=== PATIENT | female | born 1990 | race Caucasian/White ===

== ENCOUNTER 2024-05-24 10:27 | Outpatient (AMB) | payer BC, SELFPAY ==
[2024-05-24 10:41] VITALS: BP 115/77; PULSE 73; RESP 18; TEMP 36.2; O2SAT 100; BMI 23.4
--- NOTE | 2024-05-24 10:48 | OBCLNT_ITS ---
Vital Signs 05/24/24 10:41 05/24/24 10:50 Height 1.6 m Height Method Measured Weight 60.016 kg Weight Measurement Method Standing Scale BMI 23.4 BP 115/77 115/77 Blood Pressure Source Manual Cuff- Auscultation Blood Pressure Location Left Upper Arm Position Sitting Respiration 18 18 Pulse 73 73 Pulse Source Monitor Temp 97.2 F 97.2 F Temp Source Oral Pulse Oximetry (%) 100 100 Oxygen Delivery Method Room Air Allergies/Home Meds Allergies & Medications Allergies No Known Allergies Allergy (Verified 05/24/24 10:48) Medication Reconciliation No Known Home Medications 05/24/24 [History] Intake Visit Data Collection New Patient or Established: New Patient (never been to [facility]) Reason for Visit:: OB INITIAL / ULTRASOUND Seen by Clinical Staff ONLY (RN/MA): No Solar Energy Specialist Required: No Do You Feel Safe at Home: Yes Authorities Contacted: N/A PCP or OBGYN visit in last 3 months: Yes Hx Now: Yes Are you currently on any form of Control: No Last menstrual period: 01/13/24 Smoking Status Smoking Status: Never smoker Questionnaires Covid-19 Vaccine Questionnaire Has patient been vacinated for Covid-19 Have you been vacinated for Covid-19: No PHQ-9 PHQ-2 Over the last 2 weeks, how often have you been bothered by any of the following problems? 1. Little interest or pleasure in doing things: not at all 2. Feeling down, depressed, or hopeless: not at all Total score: 0 Depression screen completed yes Social History Living Situation History Marital Status: Lives With: Family Housing: House Tobacco History Smoking Status: Never smoker Alcohol History Alcohol Intake: Never Substance Use History Substance Use: NO Domestic Abuse History Do You Feel Safe at Home: Yes Past Medical History Past Medical History Have you ever been diagnosed with any of the following: Neurological Problems Meningitis: No Seizures: No Platt's Palsy: No Migraine: No Cardiology Problems Cardiac Arrhythmia: No Heart Murmur: No Hypercholesterolemia: No Rheumatic Fever: No Deep Vein Thrombosis: No Respiratory Problems Asthma: No Pulmonary Embolism: No Sleep Apnea: No Stomache/Intestinal Problems Celiac Disease: No Gall Bladder Disease: No Irritable Bowel: No Gastroesophageal Reflux Disease: No Obesity: No Genital/Urinary Problems Renal Disease: No Kidney Stones: No Reproductive Problems Breast Cancer: No Endometriosis: No Genital Herpes: No Gonorrhea: No Pelvic Inflammatory Disease: No Polycystic Ovarian Syndrome: No Previous Pregnancies: No Syphilis: No Musculoskeletal Problems Arthritis: No Rheumatoid Arthritis: No Scoliosis: No Fibromyalgia: No Head,Eye,Nose,Throat Problems Glaucoma: No Endocrine Problems Diabetes Mellitus Type 2: No Hyperthyroidism: No Hypothyroidism: No Systemic Lupus Erythematosus: No Blood Problems Anemia: No Clotting Problems: No Psychologic Problems Depression: No Anxiety: No Other Problems Hospitalization: Yes (For childbirth) Autoimmune Disease: No Surgical History Appendectomy: No Bariatric Surgery: No Cholecystectomy: No History of Present Illness HPI Narrative Patient is a 34-year-old who presents for new OB visit OB Initial Visit Menstrual History Menstrual reliability: approximate (month known) Flow: normal Menstrual regularity: regular Monthly: Yes Age at menarche: 14 On control pills at conception: No Infection History & Risk Evaluation History of STDs: none HIV risk evaluation: low risk Hepatitis B risk evaluation: low risk Patient or partner has history of Genital Herpes: No Genetic Screening & History Genetic Screening/Teratology Counseling - Includes patient, baby's father, or anyone in either family with: 1. Patient's age 35 years or older as of estimated date of delivery: No Infection History Other (see comments) Source: [employer] Review of Systems Constitutional Constitutional: Reports system reviewed and no additional complaints, except as documented Comments: Patient reports fatigue and nausea. Some vomiting but not everyday. She denies vaginal bleeding. Exam General Limitations: no limitations General Appearance: alert, in no apparent distress, comfortable, cooperative, healthy appearing, well developed and well groomed Head Head exam: atraumatic, normocephalic and normal inspection Neck Neck exam: Present normal inspection, full ROM and trachea midline Chest Chest inspection: Present normal inspection and symmetric chest wall rise Resp Respiratory exam: Present normal lung sounds bilaterally Card Cardiovascular exam: Present regular rate, normal rhythm and normal heart sounds Abdominal Abdominal exam: Present soft and normal bowel sounds Extremities Extremities exam: Present normal inspection and full ROM Psych Psychiatric exam: Present normal affect and normal mood Skin Skin exam: Present warm, dry, intact and normal color Assessment & Plan Diagnosis / Problem List (1) : Status: Acute Qualifiers: Weeks of gestation: 9 weeks Qualified Code(s): Z3A.09 - 9 weeks gestation of Plan: Intrauterine . Check labs check ultrasound discussed NIPT Additional Plan Follow Up: 4 Weeks Office Procedures OB Clinic LOC & Office Proc's Nursing/Assessment Patient Status: Initial/New Patient OB Clinic Nursing Assessment: BP Monitoring, Medication Reconciliation, Update PMH in EMR and Vital Signs OB Clinic Coordination of Care: Education Simp Pt/Fam, Lab and Imaging orders and Staff clarify orders New Patient Charge New Patient Point Assignment: 1084 Established Patient Charge Established Patient Point Charge: EP Level 5 (160-above)
[2024-05-24 10:50] VITALS: BP 115/77; PULSE 73; RESP 18; TEMP 36.2; O2SAT 100
== END 2024-05-24 12:10 | disposition home or self-care (01) ==
LOC: HODSOBC 10:27
PROVIDERS: PCP Nurse Practitioner Family; Supervising Provider Obstetrics & Gynecology; Visit Provider Obstetrics & Gynecology
DX: Z34.91 Encounter for supervision of normal pregnancy, unspecified, first trimester (principal); Z3A.09 9 weeks gestation of pregnancy
CPT/HCPCS: 99215; G0463

== ENCOUNTER 2024-06-29 13:31 | Outpatient (AMB) | payer BC, SELFPAY ==
[2024-06-29 13:45] VITALS: BP 99/61; PULSE 65; RESP 12; TEMP 36.1; O2SAT 98; BMI 24.6
--- NOTE | 2024-06-29 13:45 | AMB.OBVISIT ---
Vital Signs 06/29/24 13:45 Height 1.6 m Height Method Stated Weight 63.049 kg Weight Measurement Method Standing Scale BMI 24.6 BP 99/61 Blood Pressure Source Automatic Cuff Blood Pressure Location Left Upper Arm Position Sitting Respiration 12 Pulse 65 Pulse Source Monitor Temp 96.9 F Temp Source Oral Pulse Oximetry (%) 98 Oxygen Delivery Method Room Air Allergies/Home Meds Allergies & Medications Allergies No Known Allergies Allergy (Verified 06/29/24 13:47) Medication Reconciliation No Known Home Medications 05/24/24 [History Confirmed 06/29/24] Intake Visit Data Collection New Patient or Established: Established Patient (seen at [facility] within 3 years) Reason for Visit:: care Seen by Clinical Staff ONLY (RN/MA): No Honeycomb Blanket Maker Required: No Do You Feel Safe at Home: Yes Authorities Contacted: N/A PCP or OBGYN visit in last 3 months: Yes Date of Last PCP or OBGYN visit: 05/24/24 Hx Now: Yes Are you currently on any form of Control: No Last menstrual period: 02/05/24 Pain Present Currently: No Pain Scale Used: Thurston-Montes/Numerical Pain scale:: 0 Smoking Status Smoking Status: Never smoker Questionnaires Covid-19 Vaccine Questionnaire Has patient been vacinated for Covid-19 Have you been vacinated for Covid-19: No PHQ-9 PHQ-2 Over the last 2 weeks, how often have you been bothered by any of the following problems? 1. Little interest or pleasure in doing things: not at all 2. Feeling down, depressed, or hopeless: not at all Total score: 0 PHQ-9 3. Trouble falling or staying asleep, or sleeping too much: Not at all 4. Feeling tired or having little energy: Not at all 5. Poor appetite or overeating: Not at all 6. Feeling bad about yourself - or that you are a failure or have let yourself or your family down: Not at all 7. Trouble concentrating on things, such as reading the newspaper or watching television: Not at all 8. Moving or speaking so slowly that other people could have noticed? - Or the opposite - being so fidgety or restless that you have been moving around a lot more than usual: not at all 9. Thoughts that you would be better off or of hurting yourself in some way: Not at all Total score: 0 Source: Developed by Drs. Brigido Mayfield, Rosenda Patterson, Patircio Mcguire and colleagues, with an educational anastasiya from [employer]. Depression screen completed yes Social History Living Situation History Marital Status: Lives With: Family Housing: House Housing Other:: Patient has a 4-year-old daughter and a 13-year-old stepson at home. 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 Feel Safe at Home: Yes Past Medical History Past Medical History Have you ever been diagnosed with any of the following: Neurological Problems Cerebrovascular Accident (CVA): No Transient Ischemic Attacks (TIA): No Dementia: No Alzheimer's Disease: No Parkinson's Disease: No Brain Tumor: No Meningitis: No Seizures: No Platt's Palsy: No Migraine: No Cardiology Problems Cardiac Arrhythmia: No Heart Murmur: No Hypercholesterolemia: No Rheumatic Fever: No Deep Vein Thrombosis: No Hypertension: No Respiratory Problems Chronic Obstructive Pulmonary Disease (COPD): No Asthma: No Pulmonary Embolism: No Sleep Apnea: No Hx Cough: No Cough: No Wheezing: No Smoking: No Smoking Exposure: No Tobacco Use: No Stomache/Intestinal Problems Liver Cancer: No Hepatitis: No Cirrhosis: No Pancreatic Cancer: No Pancreatitis: No Celiac Disease: No Gall Bladder Disease: No Irritable Bowel: No Gastroesophageal Reflux Disease: No Obesity: No Genital/Urinary Problems Chronic Kidney Disease: No Renal Disease: No Kidney Stones: No Reproductive Problems Breast Cancer: No Endometriosis: No Genital Herpes: No Gonorrhea: No Pelvic Inflammatory Disease: No Polycystic Ovarian Syndrome: No Previous Pregnancies: Yes Syphilis: No Musculoskeletal Problems Arthritis: No Rheumatoid Arthritis: No Scoliosis: No Fibromyalgia: No Head,Eye,Nose,Throat Problems Glaucoma: No Endocrine Problems Diabetes Mellitus Type 2: No Hyperthyroidism: No Hypothyroidism: No Systemic Lupus Erythematosus: No Blood Problems Anemia: No Clotting Problems: No Psychologic Problems Depression: No Anxiety: No Other Problems Hospitalization: Yes (For childbirth) Surgical History Appendectomy: No Bariatric Surgery: No Cholecystectomy: No History of Present Illness HPI Narrative Patient is a 34-year-old -0-0-1 history of vaginal delivery x 1 of a 6 pound 11 ounce daughter named Aniyah on 12/29/2019. 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 She had her lab work done and declined NIPT. I do not have results at the time of the visit. Today she denies heavy bleeding cramps she is reporting movement her EDC is end of October making her approximately 21 weeks . Patient needs a 20-week ultrasound and this was ordered. Review of Systems Review of Systems Narrative Review of Systems: She reports good movement no heavy bleeding cramping or contractions. Visit RYAN Calculator Estimated Delivery Date Method Current WG Current Estimate 10/19/24 LMP (Uncertain) 24w 0d Expected Delivery Route/Plan Anticipate . Patient will desire epidural. Initial Weight: Not Recorded Date <del>?</del> EGA Weight Edema CTX Effacement BP Fundal ht Pres Dilation Effacement Station Visit Note Alb Glu FHR Mov 06/29/24 <del>?</del> 24w 0d 63.049 kg 99/61 23 137 active Exam Narrative Physical exam: Fundus firm nontender Assessment & Plan Diagnosis / Problem List (1) : Status: Acute Qualifiers: Weeks of gestation: 21 weeks Qualified Code(s): Z3A.21 - 21 weeks gestation of Plan: Review labs. Patient declines NIPT. Second trimester structural survey ordered. Patient and do not desire to know the gender. GCT ordered for patient to get drawn in [place] [facility]. Additional Plan Follow Up: 4 Weeks Office Procedures OB Clinic LOC & Office Proc's Nursing/Assessment Patient Status: Established Patient OB Clinic Nursing Assessment: Medication Reconciliation, Update PMH in EMR and Vital Signs OB Clinic Coordination of Care: Complex Care and Chronic Disease 1-5, Consent,records obtained, informed consent, Education Simp Pt/Fam, Results/Orders obtained and Staff clarify orders Special Needs: Heart tones Established Patient Charge Established Patient Point Assignment: 120 Established Patient Point Charge: EP Level 4 (120-155)
== END 2024-06-29 14:45 | disposition home or self-care (01) ==
LOC: HODSOBC 13:31
PROVIDERS: PCP Nurse Practitioner Family; Referring Provider Nurse Practitioner Family; Supervising Provider Obstetrics & Gynecology; Visit Provider Obstetrics & Gynecology
DX: Z34.82 Encounter for supervision of other normal pregnancy, second trimester (principal); Z3A.21 21 weeks gestation of pregnancy
CPT/HCPCS: 99214; G0463

== ENCOUNTER 2024-08-02 11:08 | Outpatient (AMB) | payer BC, SELFPAY ==
[2024-08-02 11:45] VITALS: BP 98/63; PULSE 63; RESP 18; TEMP 36.2; O2SAT 99; BMI 24.8
--- NOTE | 2024-08-02 11:45 | OBCLNT_ITS ---
Vital Signs 08/02/24 11:45 Height 1.6 m Height Method Stated Weight 63.673 kg Weight Measurement Method Standing Scale BMI 24.8 BP 98/63 Blood Pressure Source Automatic Cuff Blood Pressure Location Left Upper Arm Position Sitting Respiration 18 Pulse 63 Pulse Source Monitor Temp 97.2 F Temp Source Oral Pulse Oximetry (%) 99 Oxygen Delivery Method Room Air Allergies/Home Meds Allergies & Medications Allergies No Known Allergies Allergy (Verified 08/02/24 11:47) Medication Reconciliation No Known Home Medications 05/24/24 [History Confirmed 08/02/24] Intake Visit Data Collection New Patient or Established: Established Patient (seen at [facility] within 3 years) Reason for Visit:: visit Seen by Clinical Staff ONLY (RN/MA): No Physician Allergist Immunologist Required: No Do You Feel Safe at Home: Yes Authorities Contacted: N/A PCP or OBGYN visit in last 3 months: Yes Date of Last PCP or OBGYN visit: 06/29/24 Hx Now: Yes Are you currently on any form of Control: No Pain Present Currently: No Pain Scale Used: Thurston-Montes/Numerical Pain scale:: 0 Smoking Status Smoking Status: Never smoker Questionnaires Covid-19 Vaccine Questionnaire Has patient been vacinated for Covid-19 Have you been vacinated for Covid-19: No PHQ-9 PHQ-2 Over the last 2 weeks, how often have you been bothered by any of the following problems? 1. Little interest or pleasure in doing things: not at all 2. Feeling down, depressed, or hopeless: not at all Total score: 0 PHQ-9 3. Trouble falling or staying asleep, or sleeping too much: Not at all 4. Feeling tired or having little energy: Not at all 5. Poor appetite or overeating: Not at all 6. Feeling bad about yourself - or that you are a failure or have let yourself or your family down: Not at all 7. Trouble concentrating on things, such as reading the newspaper or watching television: Not at all 8. Moving or speaking so slowly that other people could have noticed? - Or the opposite - being so fidgety or restless that you have been moving around a lot more than usual: not at all 9. Thoughts that you would be better off or of hurting yourself in some way: Not at all Total score: 0 If you checked off any problems, how difficult have these problems made it for you to do your work, take care of things at home, or get along with other people?: not difficult at all Source: Developed by Drs. Brigdio Mayfield, Rosenda Patterson, Patricio Mcguire and colleagues, with an educational anastasiya from [employer]. Depression screen completed yes Social History Living Situation History Lives With: Family Housing: House Housing Other:: Patient has a 4-year-old daughter and a 13-year-old stepson at home. 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 Feel Safe at Home: Yes Past Medical History Past Medical History Have you ever been diagnosed with any of the following: Neurological Problems Cerebrovascular Accident (CVA): No Transient Ischemic Attacks (TIA): No Dementia: No Alzheimer's Disease: No Parkinson's Disease: No Brain Tumor: No Meningitis: No Seizures: No Platt's Palsy: No Migraine: No Cardiology Problems Cardiac Arrhythmia: No Heart Murmur: No Hypercholesterolemia: No Rheumatic Fever: No Deep Vein Thrombosis: No Hypertension: No Respiratory Problems Chronic Obstructive Pulmonary Disease (COPD): No Asthma: No Pulmonary Embolism: No Sleep Apnea: No Hx Cough: No Cough: No Wheezing: No Smoking: No Smoking Exposure: No Tobacco Use: No Stomache/Intestinal Problems Liver Cancer: No Hepatitis: No Cirrhosis: No Pancreatic Cancer: No Pancreatitis: No Celiac Disease: No Gall Bladder Disease: No Irritable Bowel: No Gastroesophageal Reflux Disease: No Obesity: No Genital/Urinary Problems Renal Disease: No Kidney Stones: No Reproductive Problems Breast Cancer: No Endometriosis: No Genital Herpes: No Gonorrhea: No Pelvic Inflammatory Disease: No Polycystic Ovarian Syndrome: No Previous Pregnancies: Yes Syphilis: No Musculoskeletal Problems Arthritis: No Rheumatoid Arthritis: No Scoliosis: No Fibromyalgia: No Head,Eye,Nose,Throat Problems Glaucoma: No Endocrine Problems Diabetes Mellitus Type 2: No Hyperthyroidism: No Hypothyroidism: No Systemic Lupus Erythematosus: No Blood Problems Anemia: No Clotting Problems: No Psychologic Problems Depression: No Anxiety: No Other Problems Hospitalization: Yes (For childbirth) Surgical History Appendectomy: No Bariatric Surgery: No Cholecystectomy: No Visit OB Visit Log OB Flowsheet Initial Weight: Not Recorded Date -?-?-?-?-?-?-?-?-?-?-?-?- EGA Weight Edema CTX Effacement BP Fundal ht Pres Dilation Effacement Station Visit Note Alb Glu FHR Mov 06/29/24 -?-?-?-?-?-?-?-?-?-?-?-?- 24w 0d 63.049 kg 99/61 23 137 active 08/02/24 -?-?-?-?-?-?-?-?-?-?-?-?- 28w 6d 63.673 kg 98/63 [address] [place]. No report available. Will get Labs/US report 145 active RYAN Calculator Estimated Delivery Date Method Current WG Current Estimate 10/19/24 LMP (Uncertain) 29w 0d Expected Delivery Route/Plan Anticipate . Patient will desire epidural. Office Procedures OB Clinic LOC & Office Proc's Nursing/Assessment Patient Status: Established Patient OB Clinic Nursing Assessment: BP Monitoring, Medication Reconciliation, Update PMH in EMR and Vital Signs OB Clinic Coordination of Care: Consent,records obtained, informed consent, Education Simp Pt/Fam and Staff clarify orders Special Needs: Heart tones Established Patient Charge Established Patient Point Assignment: 105 Established Patient Point Charge: EP Level 3 (80-115)
== END 2024-08-02 12:03 | disposition home or self-care (01) ==
LOC: HODSOBC 11:08
PROVIDERS: PCP Nurse Practitioner Family; Referring Provider Nurse Practitioner Family; Supervising Provider Obstetrics & Gynecology; Visit Provider Obstetrics & Gynecology
DX: Z34.83 Encounter for supervision of other normal pregnancy, third trimester (principal); Z3A.28 28 weeks gestation of pregnancy
CPT/HCPCS: 99213; G0463

== ENCOUNTER 2024-08-30 10:39 | Outpatient (AMB) | payer BC, SELFPAY ==
[2024-08-30 10:51] VITALS: BP 115/70; PULSE 76; RESP 15; TEMP 36.1; O2SAT 98; BMI 26.2
--- NOTE | 2024-08-30 10:51 | OBCLNT_ITS ---
Vital Signs 08/30/24 10:51 Height 1.6 m Height Method Stated Weight 67.302 kg Weight Measurement Method Standing Scale BMI 26.2 BP 115/70 Blood Pressure Source Automatic Cuff Blood Pressure Location Right Upper Arm Position Sitting Respiration 15 Pulse 76 Pulse Source Monitor Temp 96.9 F Temp Source Oral Pulse Oximetry (%) 98 Oxygen Delivery Method Room Air Allergies/Home Meds Allergies & Medications Allergies No Known Allergies Allergy (Verified 08/30/24 10:52) Medication Reconciliation No Known Home Medications 05/24/24 [History Confirmed 08/30/24] Intake Visit Data Collection New Patient or Established: Established Patient (seen at [facility] within 3 years) Reason for Visit:: CARE Seen by Clinical Staff ONLY (RN/MA): No Customer Success Associate Required: No Do You Feel Safe at Home: Yes Authorities Contacted: N/A PCP or OBGYN visit in last 3 months: Yes Hx Now: No Are you currently on any form of Control: No Pain Present Currently: No Pain Scale Used: Thurston-Montes/Numerical Pain scale:: 0 Smoking Status Smoking Status: Never smoker Questionnaires Covid-19 Vaccine Questionnaire Has patient been vacinated for Covid-19 Have you been vacinated for Covid-19: Yes PHQ-9 PHQ-2 Over the last 2 weeks, how often have you been bothered by any of the following problems? 1. Little interest or pleasure in doing things: not at all 2. Feeling down, depressed, or hopeless: not at all Total score: 0 PHQ-9 3. Trouble falling or staying asleep, or sleeping too much: Not at all 4. Feeling tired or having little energy: Not at all 5. Poor appetite or overeating: Not at all 6. Feeling bad about yourself - or that you are a failure or have let yourself or your family down: Not at all 7. Trouble concentrating on things, such as reading the newspaper or watching television: Not at all 8. Moving or speaking so slowly that other people could have noticed? - Or the opposite - being so fidgety or restless that you have been moving around a lot more than usual: not at all 9. Thoughts that you would be better off or of hurting yourself in some way: Not at all Total score: 0 Source: Developed by Rosenda AlmonteW. Leonardo, Patricio Mcguire and colleagues, with an educational anastasiya from [employer]. Depression screen completed yes Social History Living Situation History Lives With: Family Housing: House Housing Other:: Patient has a 4-year-old daughter and a 13-year-old stepson at home. 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: Past Medical History Past Medical History: No Hx Hypothyroidism, No Hx Hyperthyroidism, No Hx Breast Cancer, No Hx Hypertension, No Hx Anemia, No Hx Renal Disease, No Hx Deep Vein Thrombosis, No Hx Diabetes Mellitus Type 2 and No Hx Polycystic Ovarian Syndrome Care OB Visit Log OB Flowsheet Initial Weight: Not Recorded Date -?-?-?-?-?-?-?-?-?-?-?-?- EGA Weight Edema CTX Effacement BP Fundal ht Pres Dilation Effacement Station Visit Note Alb Glu FHR Mov 06/29/24 -?-?-?-?-?-?-?-?-?-?-?-?- 24w 0d 63.049 kg 99/61 23 137 active 08/02/24 -?-?-?-?-?-?-?-?-?-?-?-?- 28w 6d 63.673 kg 98/63 29 [place] [address] [place]. No report available. Will get Labs/US report 145 active 08/30/24 -?-?-?-?-?-?-?-?-?-?-?-?- 32w 6d 67.302 kg 115/70 33 P haim FM no UC's no VB need all labs and ultrasound from [facility]. active RYAN Calculator Estimated Delivery Date Method Current WG Current Estimate 10/19/24 LMP (Uncertain) 32w 6d Expected Delivery Route/Plan Anticipate . Patient will desire epidural. Has a 4-year-old daughter Aniyah. A 12-year-old stepson. Notes Visit Date: 08/30/24 Last Updated by: Catherine Beasley (OB Clinic)MD No care labs are reviewed yet. No structural survey available yet. [facility] She had her glucose challenge test all done at [facility]. Office Procedures OB Clinic LOC & Office Proc's Nursing/Assessment Patient Status: Established Patient OB Clinic Nursing Assessment: Medication Reconciliation, Update PMH in EMR and Vital Signs OB Clinic Coordination of Care: Complex Care and Chronic Disease 1-5, Consent,records obtained, informed consent, Education Simp Pt/Fam, Lab and Imaging orders and Staff clarify orders Special Needs: Heart tones Established Patient Charge Established Patient Point Assignment: 130 Established Patient Point Charge: EP Level 4 (120-155)
== END 2024-08-30 11:29 | disposition home or self-care (01) ==
PROVIDERS: Supervising Provider Obstetrics & Gynecology; Visit Provider Obstetrics & Gynecology
DX: Z34.83 Encounter for supervision of other normal pregnancy, third trimester (principal); Z3A.32 32 weeks gestation of pregnancy
CPT/HCPCS: 99214; G0463

== ENCOUNTER 2024-09-27 08:27 | Outpatient (AMB) | payer BC, SELFPAY ==
[2024-09-27 08:44] VITALS: BP 123/83; PULSE 75; RESP 18; TEMP 36.2; O2SAT 98; BMI 27.6
--- NOTE | 2024-09-27 08:44 | OBCLNT_ITS ---
Vital Signs 09/27/24 08:44 Height 1.6 m Height Method Stated Weight 70.817 kg Weight Measurement Method Standing Scale BMI 27.6 BP 123/83 Blood Pressure Source Automatic Cuff Blood Pressure Location Left Upper Arm Position Sitting Respiration 18 Pulse 75 Pulse Source Monitor Temp 97.2 F Temp Source Oral Pulse Oximetry (%) 98 Oxygen Delivery Method Room Air Allergies/Home Meds Allergies & Medications Allergies No Known Allergies Allergy (Verified 09/27/24 08:45) Medication Reconciliation No Known Home Medications 05/24/24 [History Confirmed 09/27/24] Intake Visit Data Collection New Patient or Established: Established Patient (seen at [facility] within 3 years) Reason for Visit:: OBC Seen by Clinical Staff ONLY (RN/MA): No Director Of First Impressions Required: No Do You Feel Safe at Home: Yes Authorities Contacted: N/A PCP or OBGYN visit in last 3 months: Yes Date of Last PCP or OBGYN visit: 08/30/24 Hx Now: Yes Are you currently on any form of Control: No Pain Present Currently: No Pain Scale Used: Thurston-Montes/Numerical Pain scale:: 0 Smoking Status Smoking Status: Never smoker Questionnaires Covid-19 Vaccine Questionnaire Has patient been vacinated for Covid-19 Have you been vacinated for Covid-19: No PHQ-9 PHQ-2 Over the last 2 weeks, how often have you been bothered by any of the following problems? 1. Little interest or pleasure in doing things: not at all 2. Feeling down, depressed, or hopeless: not at all Total score: 0 PHQ-9 3. Trouble falling or staying asleep, or sleeping too much: Not at all 4. Feeling tired or having little energy: Not at all 5. Poor appetite or overeating: Not at all 6. Feeling bad about yourself - or that you are a failure or have let yourself or your family down: Not at all 7. Trouble concentrating on things, such as reading the newspaper or watching television: Not at all 8. Moving or speaking so slowly that other people could have noticed? - Or the opposite - being so fidgety or restless that you have been moving around a lot more than usual: not at all 9. Thoughts that you would be better off or of hurting yourself in some way: Not at all Total score: 0 If you checked off any problems, how difficult have these problems made it for you to do your work, take care of things at home, or get along with other people?: not difficult at all Source: Developed by Drs. Brigido Mayfield, Rosenda Patterson, Patricio Mcguire and colleagues, with an educational anastasiya from [employer]. Depression screen completed yes Social History Living Situation History Marital Status: Lives With: Family Housing: House Housing Other:: Patient has a 4-year-old daughter and a 13-year-old stepson at home. 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 She presents for care. Her daughter Aniyah was born 4 years ago. She had an epidural. She pushed a long time but otherwise had no complications. Care OB Visit Log OB Flowsheet Initial Weight: Not Recorded Date -?-?-?-?-?-?-?-?-?-?-?-?- EGA Weight BP Alb Glu CTX Pres Fundal ht FHR Mov Dilation Station Effacement Hx Notes Visit Note 06/29/24 -?-?-?-?-?-?-?-?-?-?-?-?- 24w 0d 63.049 kg 99/61 23 137 active 08/02/24 -?-?-?-?-?-?-?-?-?-?-?-?- 28w 6d 63.673 kg 98/63 29 145 active Had US. No report available. Will get Labs/US report 08/30/24 -?-?-?-?-?-?-?-?-?-?-?-?- 32w 6d 67.302 kg 115/70 33 active Plus FM no UC's no VB need all labs and ultrasound from [facility]. 09/27/24 -?-?-?-?-?-?-?-?-?-?-?-?- 36w 6d 70.817 kg 123/83 37 147 active Positive movement no contractions no loss of fluids no vaginal bleeding RYAN Calculator Estimated Delivery Date Method Current WG Current Estimate 10/19/24 LMP (Uncertain) 37w 0d Comments: LMP 02/05/2024 Expected Delivery Route/Plan Anticipate . Patient will desire epidural. Has a 4-year-old daughter Aniyah. A 12-year-old mariza. Specific Issue/Plans Had all the lab work done at [facility] in [place]. Notes Visit Date: 09/27/24 Last Updated by: Catherine Beasley (OB Clinic)MD No care records from [facility] or labs or imaging available on the computer. Group B strep done today. Cervix is closed baby is vertex on ultrasound. Order ultrasound for size and dates. Visit Date: 08/30/24 Last Updated by: Catherine Beasley (OB Clinic)MD No care labs are reviewed yet. No structural survey available yet. All were done at [facility]. She had her glucose challenge test all done at [facility]. Office Procedures OB Clinic LOC & Office Proc's Nursing/Assessment Patient Status: Established Patient OB Clinic Nursing Assessment: Medication Reconciliation, Update PMH in EMR and Vital Signs OB Clinic Coordination of Care: Education Complex Pt/Fam, Consent,records obtained, informed consent, Lab and Imaging orders and Staff clarify orders Special Needs: Heart tones Established Patient Charge Established Patient Point Assignment: 110 Established Patient Point Charge: EP Level 3 (80-115)
== END 2024-09-27 09:28 | disposition home or self-care (01) ==
LOC: HODSOBC 08:27
PROVIDERS: Supervising Provider Obstetrics & Gynecology; Visit Provider Obstetrics & Gynecology
DX: Z34.83 Encounter for supervision of other normal pregnancy, third trimester (principal); Z3A.36 36 weeks gestation of pregnancy; Z36.85 Encounter for antenatal screening for Streptococcus B
CPT/HCPCS: 99213; G0463

== ENCOUNTER 2024-10-08 11:29 | Outpatient (AMB) | payer BC, SELFPAY ==
[2024-10-08 11:48] VITALS: BP 130/86; PULSE 63; RESP 17; TEMP 36.3; O2SAT 99; BMI 27.6
--- NOTE | 2024-10-08 11:48 | OBCLNT_ITS ---
Vital Signs 10/08/24 11:48 Height 1.6 m Height Method Measured Weight 70.76 kg Weight Measurement Method Standing Scale BMI 27.6 BP 130/86 H Blood Pressure Source Automatic Cuff Blood Pressure Location Right Upper Arm Position Sitting Respiration 17 Pulse 63 Pulse Source Monitor Temp 97.3 F Temp Source Temporal Artery Scan Pulse Oximetry (%) 99 Oxygen Delivery Method Room Air Allergies/Home Meds Allergies & Medications Allergies No Known Allergies Allergy (Verified 10/08/24 11:49) Medication Reconciliation No Known Home Medications 05/24/24 [History Confirmed 10/08/24] Intake Visit Data Collection New Patient or Established: Established Patient (seen at [facility] within 3 years) Reason for Visit:: OBC WEEKLY Seen by Clinical Staff ONLY (RN/MA): No 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 1. Little interest or pleasure in doing things: not at all 2. Feeling down, depressed, or hopeless: not at all Total score: 0 PHQ-9 3. Trouble falling or staying asleep, or sleeping too much: Not at all 4. Feeling tired or having little energy: Not at all 5. Poor appetite or overeating: Not at all 6. Feeling bad about yourself - or that you are a failure or have let yourself or your family down: Not at all 7. Trouble concentrating on things, such as reading the newspaper or watching television: Not at all 8. Moving or speaking so slowly that other people could have noticed? - Or the opposite - being so fidgety or restless that you have been moving around a lot more than usual: not at all 9. Thoughts that you would be better off or of hurting yourself in some way: Not at all Total score: 0 If you checked off any problems, how difficult have these problems made it for you to do your work, take care of things at home, or get along with other people?: not difficult at all Source: Developed by Drs. Brigido Mayfield, Rosenda Patterson, Patricio Mcguire and colleagues, with an educational anastasiya from [employer]. Depression screen completed yes Social History Living Situation History Lives With: Family Housing: House Housing Other:: Patient has a 4-year-old daughter and a 13-year-old stepson at home. 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 No contractions, LOF, VB and reports good FM. Denies BOUCHER, VC, and epigastric pain. - Khoa Hurst is a 34-year-old at ~37 weeks gestation presenting for routine care. - Patient reports no specific complaints or concerns. - Chart indicates October 21, 2024 - Recent ultrasound suggests November 11, 2024 - Previous ultrasound indicated November 08, 2024 - Obstetrical history: - One previous - Daughter born 1 week early - Spontaneous rupture of membranes at home - Labor lasted approximately 24 hours - Patient expresses hope for faster labor with current . - Currently working, plans to work until October 29, 2024. - Denies knowledge of gender, preferring it to be a surprise. Care OB Visit Log OB Flowsheet Initial Weight: Not Recorded Date -?-?-?-?-?-?-?-?-?-?-?-?- EGA Weight BP Alb Glu CTX Pres Fundal ht FHR Mov Dilation Station Effacement Hx Notes Visit Note 06/29/24 -?-?-?-?-?-?-?-?-?-?-?-?- 20w 6d 63.049 kg 99/61 23 137 active 08/02/24 -?-?-?-?-?-?-?-?-?-?-?-?- 25w 5d 63.673 kg 98/63 29 145 active Had US. No report available. Will get Labs/US report 08/30/24 -?-?-?-?-?-?-?-?-?-?-?-?- 29w 5d 67.302 kg 115/70 33 active Plus FM no UC's no VB need all labs and ultrasound from [facility]. 09/27/24 -?-?-?-?-?-?-?-?-?-?-?-?- 33w 5d 70.817 kg 123/83 37 147 active Positive movement no contractions no loss of fluids no vaginal bleeding 10/08/24 -?-?-?-?-?-?-?-?-?-?-?-?- 35w 2d 70.76 kg 130/86 absent unknown 37 145 active Denies CTX, LOF, VB; reports good FM. PENDING ultrasound reports from [facility] to finalize RYAN. call patient thi s afternoon with updated RYAN after reviewing US reports, 1- week f/u with Dr. Mckeon, discuss risk reduction salpingectomy vs tubal ligation options. RYAN Calculator Estimated Delivery Date Method Current WG Current Estimate 11/10/24 Ultrasound #1 35w 2d Other Estimates 10/19/24 LMP (Uncertain) 38w 3d Expected Delivery Route/Plan Anticipate . Patient will desire epidural. Has a 4-year-old daughter Aniyah. A 12-year-old stepson. Specific Issue/Plans Had all the lab work done at [facility] in [place]. Notes Visit Date: 09/27/24 Last Updated by: Catherine Beasley (OB Clinic)MD No care records from [facility] or labs or imaging available on the computer. Group B strep done today. Cervix is closed baby is vertex on ultrasound. Order ultrasound for size and dates. Visit Date: 08/30/24 Last Updated by: Catherine Beasley (OB Clinic)MD No care labs are reviewed yet. No structural survey available yet. All were done at today's. She had her glucose challenge test all done at [facility]. Exam General General Appearance: alert, in no apparent distress and healthy appearing Head Head exam: atraumatic Neck Neck exam: Present normal inspection and trachea midline Chest Chest inspection: Present normal inspection and symmetric chest wall rise External exam: Present normal external exam; Absent tenderness Neuro Neurological exam: Present oriented X3 Psych Psychiatric exam: Present normal affect and normal mood Office Procedures OB Clinic LOC & Office Proc's Nursing/Assessment Patient Status: Established Patient OB Clinic Nursing Assessment: Medication Reconciliation, Update PMH in EMR and Vital Signs OB Clinic Coordination of Care: Consent,records obtained, informed consent, 4+ Authorizations needed and Staff clarify orders Special Needs: Heart tones Established Patient Charge Established Patient Point Assignment: 100 Established Patient Point Charge: EP Level 3 (80-115) Assessment & Plan Diagnosis / Problem List (1) with 37 weeks completed gestation: Status: Acute (2) AMA (advanced maternal age) multigravida 35+: Status: Acute Plan Problem List - , ~37 weeks gestation (pending ultrasounds from [facility]) - Group B streptococcus screening completed Assessment at ~37 weeks gestation with estimated due date (RYAN) of October 19, 2024, based on early ultrasound dating. Patient reports conflicting due dates from recent ultrasounds, with later estimates ranging from November 08 to November 11. Group B strep culture has been completed. heart rate auscultated at 135 bpm, within normal limits. Patient's first resulted in spontaneous rupture of membranes at home with a prolonged labor of approximately 24 hours. Patient is considering sterilization options, with preference for interval laparoscopic tubal ligation. Plan - Call patient in the afternoon with updated information on due date after reviewing ultrasound reports - Schedule 1-week follow-up appointment with Dr. Mckeon - Provide patient with information on risk reduction related to sterilization options - Discuss sterilization options: * tubal ligation * Laparoscopic tubal ligation at 6 weeks (preferred due to fewer complications and higher efficacy) - Print information on ovarian cancer risk reduction associated with fimbriectomy during tubal ligation Addendum Records were obtained from [facility] and final results are as follows Estimated Due Date Summary Date RYAN LMP 01/13/2024 RYAN by LMP 10/19/2024 Ultrasound #1 08/02/2024 GA at US 25w5d RYAN by US #1: 11/10/2024 Final RYAN 11/10/2024 Basis for Final RYAN US (>14d discrepancy in 2nd trimester)
== END 2024-10-08 12:12 | disposition home or self-care (01) ==
PROVIDERS: Supervising Provider Obstetrics & Gynecology; Visit Provider Obstetrics & Gynecology
DX: Z34.83 Encounter for supervision of other normal pregnancy, third trimester (principal); Z3A.37 37 weeks gestation of pregnancy
CPT/HCPCS: 99213; G0463

== ENCOUNTER 2024-10-18 08:58 | Outpatient (AMB) | payer BC, SELFPAY ==
--- NOTE | 2024-10-18 09:18 | OBCLNT_ITS ---
Vital Signs 10/18/24 09:19 Height 1.6 m Height Method Measured Weight 73.085 kg Weight Measurement Method Standing Scale BMI 28.5 BP 143/94 H Blood Pressure Source Automatic Cuff Blood Pressure Location Right Upper Arm Position Sitting Respiration 17 Pulse 75 Pulse Source Monitor Temp 97.5 F Temp Source Temporal Artery Scan Pulse Oximetry (%) 98 Oxygen Delivery Method Room Air Allergies/Home Meds Allergies & Medications Allergies No Known Allergies Allergy (Verified 10/18/24 09:20) Medication Reconciliation No Known Home Medications 05/24/24 [History Confirmed 10/18/24] Intake Visit Data Collection New Patient or Established: Established Patient (seen at [facility] within 3 years) Reason for Visit:: OBC Consent obtained for Telemed Visit: No Seen by Clinical Staff ONLY (RN/MA): No Enrollment Eligibility Representative Required: No Do You Feel Safe at Home: Yes Authorities Contacted: N/A PCP or OBGYN visit in last 3 months: Yes Date of Last PCP or OBGYN visit: 10/08/24 Hx Now: Yes Are you currently on any form of Control: No Pain Present Currently: No Pain Scale Used: Thurston-Montes/Numerical Pain scale:: 0 Smoking Status Smoking Status: Never smoker Questionnaires PHQ-9 PHQ-2 Over the last 2 weeks, how often have you been bothered by any of the following problems? 1. Little interest or pleasure in doing things: not at all PHQ-9 8. Moving or speaking so slowly that other people could have noticed? - Or the opposite - being so fidgety or restless that you have been moving around a lot more than usual: not at all Source: Developed by Drs. Brigido Mayfield, Rosenda Patterson, Patricio Mcguire and colleagues, with an educational anastasiya from [employer]. Social History Living Situation History Lives With: Family Housing: House Housing Other:: Patient has a 4-year-old daughter and a 13-year-old stepson at home. 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 No contractions, LOF, VB and reports good FM. Denies BOUCHER, VC, and epigastric pain. - Khoa Hurst is a 34-year-old 2 para 1 presenting for care at 36 weeks and 5 days gestation. - Due date is November 10, 2024, confirmed by past ultrasounds. - Group B strep culture is positive. - Patient reports: - Baby is active - No contractions - Experiencing normal cramping - Idris-Martinez contractions occurring randomly - Previous : - Delivered one week early - No reports of: - Leakage - Bleeding - Prolonged baby inactivity Care OB Visit Log OB Flowsheet Initial Weight: Not Recorded Date -?-?-?-?-?-?-?-?-?-?-?-?- EGA Weight BP Alb Glu CTX Pres Fundal ht FHR Mov Dilation Station Effacement Hx Notes Visit Note 06/29/24 -?-?-?-?-?-?-?-?-?-?-?-?- 20w 6d 63.049 kg 99/61 23 137 active 08/02/24 -?-?-?-?-?-?-?-?-?-?-?-?- 25w 5d 63.673 kg 98/63 29 145 active Had US. No report available. Will get Labs/US report 08/30/24 -?-?-?-?-?-?-?-?-?-?-?-?- 29w 5d 67.302 kg 115/70 33 active Plus FM no UC's no VB need all labs and ultrasound from [facility]. 09/27/24 -?-?-?-?-?-?-?-?-?-?-?-?- 33w 5d 70.817 kg 123/83 37 147 active Positive movement no contractions no loss of fluids no vaginal bleeding 10/08/24 -?-?-?-?-?-?-?-?-?-?-?-?- 35w 2d 70.76 kg 130/86 absent unknown 37 145 active Denies CTX, LOF, VB; reports good FM. PENDING ultrasound reports from [facility] to finalize RAYN. call patient thi s afternoon with updated RYAN after reviewing US reports, 1- week f/u with Dr. Mckeon, discuss risk reduction salpingectomy vs tubal ligation options. 10/18/24 -?-?-?-?-?-?-?-?-?-?-?-?- 36w 5d 73.085 kg 143/94 occasional cephalic 37 145 active No CTX/LOF/VB, reports good FM. GBS positive. Reports BH ctx and cramping, no persistent symptoms. RYAN 11/10 confirmed. Prior delivery at 39w Plan: ampicillin during labor, continue weekly visits, cervix checks closer to RYAN, induce if not in labor by 41w, return for CTX, LOF, VB, or ?FM. RYAN Calculator Estimated Delivery Date Method Current WG Current Estimate 11/10/24 Ultrasound #1 36w 5d Other Estimates 10/19/24 LMP (Uncertain) 39w 6d Expected Delivery Route/Plan Anticipate . Patient will desire epidural. Has a 4-year-old daughter Aniyah. A 12-year-old mariza. Specific Issue/Plans Had all the lab work done at [facility] in [place]. Notes Visit Date: 09/27/24 Last Updated by: Catherine Beasley (OB Clinic)MD No care records from [facility] or labs or imaging available on the computer. Group B strep done today. Cervix is closed baby is vertex on ultrasound. Order ultrasound for size and dates. Visit Date: 08/30/24 Last Updated by: Catherine Beasley (OB Clinic)MD No care labs are reviewed yet. No structural survey available yet. All were done at [facility]. She had her glucose challenge test all done at [facility]. Exam General General Appearance: alert, in no apparent distress and healthy appearing Head Head exam: atraumatic Neck Neck exam: Present normal inspection and trachea midline Chest Chest inspection: Present normal inspection and symmetric chest wall rise External exam: Present normal external exam; Absent tenderness Neuro Neurological exam: Present oriented X3 Psych Psychiatric exam: Present normal affect and normal mood Office Procedures OB Clinic LOC & Office Proc's Nursing/Assessment Patient Status: Established Patient OB Clinic Nursing Assessment: Medication Reconciliation, Update PMH in EMR and Vital Signs OB Clinic Coordination of Care: Complex Care and Chronic Disease 1-5, Consent,records obtained, informed consent, Education Simp Pt/Fam and Lab and Imaging orders Special Needs: Heart tones Established Patient Charge Established Patient Point Assignment: 120 Established Patient Point Charge: EP Level 4 (120-155) Assessment & Plan Diagnosis / Problem List (1) Supervision of high risk , unspecified, third trimester: Status: Acute (2) AMA (advanced maternal age) multigravida 35+: Status: Acute (3) with 37 weeks completed gestation: Status: Acute Plan Problem List - , 36 weeks and 5 days gestation - Group B streptococcus positive Assessment at 36 weeks and 5 days gestation with RYAN 11/10/2024, confirmed by previous ultrasounds. Group B strep culture positive, necessitating intrapartum ampicillin prophylaxis. Patient experiencing normal cramping and Shawano-Martinez contractions. movement reported as active. History of delivery at 39 weeks in previous , indicating potential for early labor in current . No signs of active labor or complications at present. Plan - Administer ampicillin during labor to prevent meningitis due to positive Group B strep culture - Next appointment scheduled for October 29, 2024 - Continue weekly or 10-day appointments - Perform cervix checks closer to due date - Schedule induction if not in labor by 41 weeks - Monitor for contractions, leakage, bleeding, or baby inactivity for more than 3 hours 1. Progress Reviewed gestational age, growth, and heart rate. Planned frequent visits (every 2 weeks until 36 weeks, then weekly). 2. Instructed patient to monitor movements and report decreases immediately. 3. Testing Counseled on routine third-trimester labs per guidelines. Discussed potential need for ultrasound or monitoring based on risk factors. 4. Preeclampsia Precaution Educated on preeclampsia signs: severe headache, vision changes, right upper quadrant pain, sudden swelling. Advised urgent reporting of symptoms and discussed blood pressure monitoring if high risk. 5. Labor Precautions Reviewed labor signs: regular contractions, pelvic pressure, back pain, bleeding, or fluid leakage. Instructed to seek immediate care for these symptoms. 6. Lifestyle and Delivery Preparation Reinforced vitamins, nutrition, and safe activity. Discussed plan, pain management, and . Advised on labor preparation (e.g., hospital bag) and expectations. 7. Psychosocial Support Assessed emotional well-being and offered resources for mental health or parenting support.
[2024-10-18 09:19] VITALS: BP 143/94; PULSE 75; RESP 17; TEMP 36.4; O2SAT 98; BMI 28.5
== END 2024-10-18 09:39 | disposition home or self-care (01) ==
LOC: HODSOBC 08:58
PROVIDERS: Supervising Provider Obstetrics & Gynecology; Visit Provider Obstetrics & Gynecology
DX: O09.893 Supervision of other high risk pregnancies, third trimester (principal); O99.820 Streptococcus B carrier state complicating pregnancy; O47.03 False labor before 37 completed weeks of gestation, third trimester; Z3A.36 36 weeks gestation of pregnancy
CPT/HCPCS: 99214; G0463

== ENCOUNTER 2024-10-29 08:35 | Outpatient (AMB) | payer BC, SELFPAY ==
[2024-10-29 08:43] VITALS: BP 135/97; PULSE 70; RESP 17; TEMP 36.3; O2SAT 98; BMI 28.8
--- NOTE | 2024-10-29 08:43 | OBCLNT_ITS ---
Vital Signs 10/29/24 08:43 Height 1.6 m Height Method Measured Weight 73.936 kg Weight Measurement Method Standing Scale BMI 28.8 BP 135/97 H Blood Pressure Source Automatic Cuff Blood Pressure Location Right Upper Arm Position Sitting Respiration 17 Pulse 70 Pulse Source Monitor Temp 97.4 F Temp Source Temporal Artery Scan Pulse Oximetry (%) 98 Oxygen Delivery Method Room Air Allergies/Home Meds Allergies & Medications Allergies No Known Allergies Allergy (Verified 10/29/24 08:44) Medication Reconciliation No Known Home Medications 05/24/24 [History Confirmed 10/29/24] Intake Visit Data Collection New Patient or Established: Established Patient (seen at [facility] within 3 years) Reason for Visit:: OBC Consent obtained for Telemed Visit: No Seen by Clinical Staff ONLY (RN/MA): No 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 1. Little interest or pleasure in doing things: not at all PHQ-9 8. Moving or speaking so slowly that other people could have noticed? - Or the opposite - being so fidgety or restless that you have been moving around a lot more than usual: not at all Source: Developed by Drs. Brigido Mayfield, Rosenda Patterson, Patricio Mcguire and colleagues, with an educational anastasiya from [email or web address]. Social History Living Situation History Lives With: Family Housing: House Housing Other:: Patient has a 4-year-old daughter and a 13-year-old stepson at home. 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 No report available. Will get Labs/US report 08/30/24 -?-?-?-?-?-?-?-?-?-?-?-?- 29w 5d 67.302 kg 115/70 33 active Plus FM no UC's no VB need all labs and ultrasound from [facility]. 09/27/24 -?-?-?-?-?-?-?-?-?-?-?-?- 33w 5d 70.817 kg 123/83 37 147 active Positive movement no contractions no loss of fluids no vaginal bleeding 10/08/24 -?-?-?-?-?-?-?-?-?-?-?-?- 35w 2d 70.76 kg 130/86 absent unknown 37 145 active Denies CTX, LOF, VB; reports good FM. PENDING ultrasound reports from [facility] to finalize RYAN. call patient thi s afternoon with updated RYAN after reviewing US reports, 1- week f/u with Dr. Mckeon, discuss risk reduction salpingectomy vs tubal ligation options. 10/18/24 -?-?-?-?-?-?-?-?-?-?-?-?- 36w 5d 73.085 kg 143/94 occasional cephalic 37 145 active No CTX/LOF/VB, reports good FM. GBS positive. Reports BH ctx and cramping, no persistent symptoms. RYAN 11/10 confirmed. Prior delivery at 39w Plan: ampicillin during labor, continue weekly visits, cervix checks closer to RYAN, induce if not in labor by 41w, return for CTX, LOF, VB, or ?FM. 10/29/24 -?-?-?-?-?-?-?-?-?-?-?-?- 38w 2d 73.936 kg 135/97 occasional cephalic 36 137 active 1 -3 50 Good movement occasional contractions no loss of fluid or bleeding. Preeclamptic precautions given. Probable induction of labor by due date secondary to salvatore rderline elevated blood pressures Patient is aware of positive group B strep status RYAN Calculator Estimated Delivery Date Method Current WG Current Estimate 11/10/24 Ultrasound #1 38w 2d Other Estimates 10/19/24 LMP (Uncertain) 41w 3d Expected Delivery Route/Plan Anticipate . Patient will desire epidural. Has a 4-year-old daughter Aniyah. A 12-year-old mariza. Specific Issue/Plans Had all the lab work done at [facility] in [place]. Notes Visit Date: 10/29/24 Last Updated by: Catherine Beasley (OB Clinic)MD care labs from [facility]: A+ /antibody negative/ hepatitis B surface antigen negative/ rubella immune /RPR nonreactive /HIV negative/ GC negative /Chlamydia negative/declined NIPT structural survey from 08/02/2024 at [facility] on chart and normal Visit Date: 09/27/24 Last Updated by: Catherine Beasley (OB Clinic)MD No care records from [facility] or labs or imaging available on the computer. Group B strep done today. Cervix is closed baby is vertex on ultrasound. Order ultrasound for size and dates. Visit Date: 08/30/24 Last Updated by: Catherine Beasley (OB Clinic)MD No care labs are reviewed yet. No structural survey available yet. All were done at [facility] She had her glucose challenge test all done at [facility]. Office Procedures OB Clinic LOC & Office Proc's Nursing/Assessment Patient Status: Established Patient OB Clinic Nursing Assessment: Medication Reconciliation, Update PMH in EMR and Vital Signs OB Clinic Coordination of Care: Complex Care and Chronic Disease 1-5, Consent,records obtained, informed consent, Education Simp Pt/Fam and 4+ Authorizations needed Special Needs: Heart tones Established Patient Charge Established Patient Point Assignment: 130 Established Patient Point Charge: EP Level 4 (120-155) Assessment & Plan Diagnosis / Problem List (1) : Status: Acute Qualifiers: Weeks of gestation: 38 weeks Qualified Code(s): Z3A.38 - 38 weeks gestation of
== END 2024-10-29 09:17 | disposition home or self-care (01) ==
LOC: HODSOBC 08:35
PROVIDERS: Supervising Provider Obstetrics & Gynecology; Visit Provider Obstetrics & Gynecology
DX: O09.893 Supervision of other high risk pregnancies, third trimester (principal); O99.891 Other specified diseases and conditions complicating pregnancy; R03.0 Elevated blood-pressure reading, without diagnosis of hypertension; O99.820 Streptococcus B carrier state complicating pregnancy; Z3A.38 38 weeks gestation of pregnancy
CPT/HCPCS: 99214; G0463

== ENCOUNTER 2024-11-03 08:32 | Outpatient (AMB) | payer BC, SELFPAY ==
[2024-11-03 08:36] VITALS: BP 138/88; PULSE 67; RESP 15; TEMP 36.6; O2SAT 98; BMI 29.2
--- NOTE | 2024-11-03 08:36 | AMB.OBVISIT ---
Vital Signs 11/03/24 08:36 Height 1.6 m Height Method Stated Weight 74.899 kg Weight Measurement Method Standing Scale BMI 29.2 BP 138/88 H Blood Pressure Source Automatic Cuff Blood Pressure Location Left Upper Arm Position Sitting Respiration 15 Pulse 67 Pulse Source Monitor Temp 97.8 F Temp Source Oral Pulse Oximetry (%) 98 Oxygen Delivery Method Room Air Allergies/Home Meds Allergies & Medications Allergies No Known Allergies Allergy (Verified 11/03/24 08:37) Medication Reconciliation No Known Home Medications 05/24/24 [History Confirmed 11/03/24] Intake Visit Data Collection New Patient or Established: Established Patient (seen at [facility] within 3 years) Reason for Visit:: CARE Seen by Clinical Staff ONLY (RN/MA): No 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 1. Little interest or pleasure in doing things: not at all 2. Feeling down, depressed, or hopeless: not at all Total score: 0 PHQ-9 3. Trouble falling or staying asleep, or sleeping too much: Not at all 4. Feeling tired or having little energy: Not at all 5. Poor appetite or overeating: Not at all 6. Feeling bad about yourself - or that you are a failure or have let yourself or your family down: Not at all 7. Trouble concentrating on things, such as reading the newspaper or watching television: Not at all 8. Moving or speaking so slowly that other people could have noticed? - Or the opposite - being so fidgety or restless that you have been moving around a lot more than usual: not at all 9. Thoughts that you would be better off or of hurting yourself in some way: Not at all Total score: 0 Source: Developed by Rosenda Almonte B.W. Leonardo, Patricio Mcguire and colleagues, with an educational anastasiya from [employer]. Depression screen completed yes Social History Living Situation History Lives With: Family Housing: House Housing Other:: Patient has a 4-year-old daughter and a 13-year-old stepson at home. 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 No report available. Will get Labs/US report 08/30/24 <del>?</del> 29w 5d 67.302 kg 115/70 33 active Plus FM no UC's no VB need all labs and ultrasound from [facility]. 09/27/24 <del>?</del> 33w 5d 70.817 kg 123/83 37 147 active Positive movement no contractions no loss of fluids no vaginal bleeding 10/08/24 <del>?</del> 35w 2d 70.76 kg 130/86 absent unknown 37 145 active Denies CTX, LOF, VB; reports good FM. PENDING ultrasound reports from [facility] to finalize RYAN. call patient this afternoon with updated RYAN after reviewing US reports, 1-week f/u with Dr. Bokan, discuss risk reduction salpingectomy vs tubal ligation options. 10/18/24 <del>?</del> 36w 5d 73.085 kg 143/94 occasional cephalic 37 145 active No CTX/LOF/VB, reports good FM. GBS positive. Reports BH ctx and cramping, no persistent symptoms. RYAN 11/10 confirmed. Prior delivery at 39w Plan: ampicillin during labor, continue weekly visits, cervix checks closer to RYAN, induce if not in labor by 41w, return for CTX, LOF, VB, or ?FM. 10/29/24 <del>?</del> 38w 2d 73.936 kg 135/97 occasional cephalic 36 137 active 1 -3 50 Good movement occasional contractions no loss of fluid or bleeding. Preeclamptic precautions given. Probable induction of labor by due date secondary to borderline elevated blood pressures Patient is aware of positive group B strep status 11/03/24 <del>?</del> 39w 0d 74.899 kg 138/88 occasional cephalic 35 143 active 1 -3 50 +FM. No LOF, Very itchy on abdomen . No rash. Sometimes hands and feet itch RYAN Calculator Estimated Delivery Date Method Current WG Current Estimate 11/10/24 Ultrasound #1 39w 0d Other Estimates 10/19/24 LMP (Uncertain) 42w 1d Expected Delivery Route/Plan Anticipate . Patient will desire epidural. Has a 4-year-old daughter Aniyah. A 12-year-old mariza. Specific Issue/Plans Had all the lab work done at [facility] in [place]. Notes Visit Date: 11/03/24 Last Updated by: Catherine Beasley (OB Clinic)MD +GBBS: Ampicillin in labor Will schedule induction of labor 11/06/2024 EDC 11/11/2024 patient is itchy and has a few mildly elevated blood pressures rule out PIH. Visit Date: 10/29/24 Last Updated by: Catherine Beasley (OB Clinic)MD care labs from [facility]: A+ /antibody negative/ hepatitis B surface antigen negative/ rubella immune /RPR nonreactive /HIV negative/ GC negative /Chlamydia negative/declined NIPT structural survey from 08/02/2024 at [facility] on chart and normal Visit Date: 09/27/24 Last Updated by: Catherine Beasley (OB Clinic)MD No care records from [facility] or labs or imaging available on the computer. Group B strep done today. Cervix is closed baby is vertex on ultrasound. Order ultrasound for size and dates. Visit Date: 08/30/24 Last Updated by: Catherine Beasley (OB Clinic)MD No care labs are reviewed yet. No structural survey available yet. All were done at [facility]. She had her glucose challenge test all done at [facility]. Office Procedures OB Clinic LOC & Office Proc's Nursing/Assessment Patient Status: Established Patient OB Clinic Nursing Assessment: Medication Reconciliation, Update PMH in EMR and Vital Signs OB Clinic Coordination of Care: Complex Care and Chronic Disease 1-5, Consent,records obtained, informed consent, Education Simp Pt/Fam, Lab and Imaging orders and Staff clarify orders Special Needs: Heart tones Established Patient Charge Established Patient Point Assignment: 130 Established Patient Point Charge: EP Level 4 (120-155) Assessment & Plan Diagnosis / Problem List (1) : Status: Acute Qualifiers: Weeks of gestation: 38 weeks Qualified Code(s): Z3A.38 - 38 weeks gestation of Assessment and Plan: 38 to 39 weeks with itching and mildly elevated blood pressures for induction of labor 11/06/2024. (2) Mother positive for group B Streptococcus colonization: Status: Acute Assessment and Plan: Ampicillin in labor
== END 2024-11-03 09:48 | disposition home or self-care (01) ==
LOC: HODSOBC 08:32
PROVIDERS: Supervising Provider Obstetrics & Gynecology; Visit Provider Obstetrics & Gynecology
DX: O09.893 Supervision of other high risk pregnancies, third trimester (principal); O99.820 Streptococcus B carrier state complicating pregnancy; O26.893 Other specified pregnancy related conditions, third trimester; L29.89 Other pruritus; O99.891 Other specified diseases and conditions complicating pregnancy; R03.0 Elevated blood-pressure reading, without diagnosis of hypertension; Z3A.39 39 weeks gestation of pregnancy
CPT/HCPCS: 99214; G0463

== ENCOUNTER 2024-11-06 07:34 | Inpatient (IN) | payer BC, SELFPAY ==
[2024-11-06] VITALS (95 sets, daily range): BP systolic 129–161; BP diastolic 70–102; PULSE 57–146; RESP 16–18; TEMP 36.4–37.4; O2SAT 91–100; BMI 29.4
[2024-11-06 08:29] LABS: Basophils # (Auto) 0.1 Thou/mm3 (0.0-0.2); Basophils % (Auto) 1 % (0-2.5); Eosinophils # (Auto) 0.3 Thou/mm3 (0.0-0.5); Eosinophils % (Auto) 3 % (0-10); Hematocrit 40.9 % (36.0-46.0); Hemoglobin 13.9 g/dL (12.0-16.0); Immature Granulocytes Auto 0.03 Thou/mm3 (0.00-0.00); Lymphocytes # (Auto) 3.3 Thou/mm3 (1.0-4.8); Lymphocytes % (Auto) 31 % (10-50); Mean Corpuscular HGB Conc 34.0 g/dl (31.0-37.0); Mean Corpuscular Hemoglobin 30.2 pg (25.0-35.0); Mean Corpuscular Volume 89 fL (80-100); Monocytes # (Auto) 0.5 Thou/mm3 (0.0-0.8); Monocytes % (Auto) 5 % (0-12); Neutrophils # (Auto) 6.4 Thou/mm3 (1.8-7.7); Neutrophils % (Auto) 60 % (37-80); Nucleated Red Blood Cell # 0.00 Thou/mm3 (0.00-0.00); Nucleated Red Blood Cell % 0 /100 WBC (0); Platelet Count 164 Thou/mm3 (140-440); RDW Standard Deviation 44.4 fL (36.4-46.3); Red Blood Count 4.61 Miln/mm3 (4.00-5.20); White Blood Count 10.6 Thou/mm3 (3.6-11.0)
[2024-11-06 08:45] LABS: Alanine Aminotransferase 18 U/L (10-49); Albumin, Serum 3.6 gm/dL (3.5-5.0); Albumin/Globulin Ratio 1.3 (1.2-2.2); Alkaline Phosphatase 193 U/L (46-116); Anion Gap 11 (7-16); Aspartate Amino Transferase 43 U/L (0-34); BUN/Creatinine Ratio 14 Ratio (12-20); Bilirubin,Total 0.3 mg/dL (0.3-1.2); Blood Urea Nitrogen 11 mg/dL (9-23); Calcium 9.0 mg/dL (8.3-10.6); Calcium (Corrected) 9.3 mg/dL (8.5-10.1); Carbon Dioxide 21.0 mMol/L (20.0-31.0); Chloride 109 mMol/L (98-107); Creatinine (Component) 0.8 mg/dL (0.6-1.3); Estimated Creatinine Clearance 98.2 mL/min (>60); Globulin 2.7 gm/dL (2.3-3.5); Glucose 85 mg/dL (74-106); Osmolality,Calculated 279 (275-295); Potassium 4.2 mMol/L (3.4-5.1); Sodium 141 mMol/L (136-145); Total Protein 6.3 gm/dL (5.7-8.2); Uric Acid 7.6 mg/dL (3.1-7.8); eGFR > 60 See Note
[2024-11-06 08:53] LABS: Fibrinogen 441 mg/dL (175-375); INR 0.9 (0.9-1.3); Partial Thromboplastin Time 26.4 Seconds (22.0-36.0); Prothrombin Time 9.8 Seconds (9.0-12.2)
[2024-11-06] MEDS: RINGERS LACTATED 1000 ML 1,000 ML 100 ML IV ×2 (09:13→17:21)
[2024-11-06 09:15] LABS: Syphilis Nonreactive (Nonreactive)
[2024-11-06 10:32] LABS: Collection Type, Urine Clean Catch
[2024-11-06 10:39] LABS: Bilirubin,Urine Negative (Negative); Blood,Urine Negative (Negative); Clarity,Urine Clear (Clear/Hazy); Color,Urine Colorless (Lt Yel-Yel); Glucose, Urine Negative (Negative); Ketones,Urine Negative (Negative); Leukocyte Esterase,Urine Positive (Negative); Nitrite,Urine Negative (Negative); PH,Urine 6.0 (5.0-7.0); Protein,Urine Negative (Neg - Trace); RBC,Urine 1 /hpf (0-3); Specific Gravity,Urine 1.005 (1.001-1.035); Squamous Epithelial Cell,Urine 5 /hpf (0-5); Urobilinogen,Urine Negative mg/dL (0.0-1.0); WBC,Urine 2 /hpf (0-5)
[2024-11-06 10:48] LABS: Creatinine,Random Urine 29 mg/dL (30-125); Protein Total, Random Urine 8 mg/dL (1-14)
--- NOTE | 2024-11-06 15:08 | PD.LDHP ---
Documentation for date of: 11/06/24 OB Labor/Induct. HPI History of Present Illness Chief complaint: Induction of labor for elevated blood pressures : 2 Para: 1 Term pregnancies: 1 pregnancies: 0 Living children: 1 History of Abortions: Spontaneous and Elective: 0 History of Vaginal deliveries: 1 History of sections: No History of : No RYAN: 11/10/24 Gestational Age (weeks): 39 Gestational Age (days): 3 Indication for induction: medical complication (-induced hypertension) History of present illness: The patient is a 34-year-old -0-0-1 with all care uncomplicated with Dr. Merry Beasley in the [facility] with some slightly elevated blood pressures last 2-3 visits of 140s over 80s to 90s. She denied headaches or right upper quadrant pain. She denied scotomata. She was over 39 weeks and multiparous with -induced hypertension, she was offered as scheduled induction of labor. History of Present Dating criteria: LMP confirmed by 2nd trimester US Adequate Care: Yes Ultrasounds: normal mid trimester US Obstetrical complications: other (-induced hypertension) Medical complications: none Labs Maternal Blood Type: A Pos Labs: Positive: Rubella Titre and Group Beta Strep, Negative: RPR, Hepatitis B, HIV, Chlamydia and Gonorrhea and Unknown: Herpes Type 1, Herpes Type 2 and Covid-19 Past Medical History Surgical History SURGICAL: Negative Section Meds Home Medications and Allergies Home Medications ?Medication ?Instructions ?Recorded ?Confirmed ?Type No Known Home Medications 05/24/24 11/03/24 History Allergies Allergy/AdvReac Type Severity Reaction Status Date / Time No Known Allergies Allergy Verified 11/03/24 08:37 OB Exam Physical Exam Vital signs: Temp Pulse Resp BP 97.6 F 71 18 140/88 H 11/06/24 07:34 11/06/24 14:08 11/06/24 07:34 11/06/24 14:08 Detailed Labor and Delivery Exam Effacement (%): 25 Cervix position: posterior station: -3 Consistency: medium Presentation: Vertex (On bedside ultrasound performed by Dr Beasley.) Membranes: intact monitor accelerations: 15x15 monitor decelerations: None 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: Moderate (11-25) Contraction frequency (min): Irregular Tachysystole: No Contraction intensity: Mild OB Results Labs 11/06/24 07:55 11/06/24 07:55 Labs: Short CBC 11/06/24 Range/Units 07:55 WBC 10.6 (3.6-11.0) Thou/mm3 Hgb 13.9 (12.0-16.0) g/dL Hct 40.9 (36.0-46.0) % Plt Count 164 (140-440) Thou/mm3 BMP 11/06/24 07:55 Sodium 141 Potassium 4.2 Chloride 109 H Carbon Dioxide 21.0 BUN 11 Creatinine 0.8 Glucose 85 Calcium 9.0 Liver Function 11/06/24 Range/Units 07:55 Total Bilirubin 0.3 (0.3-1.2) mg/dL AST 43 H (0-34) U/L ALT 18 (10-49) U/L Alkaline Phosphatase 193 H (46-116) U/L Albumin 3.6 (3.5-5.0) gm/dL Urine 11/06/24 Range/Units 10:00 Urine Color Colorless A (Lt Yel-Yel) Urine Clarity Clear (Clear/Hazy) Urine pH 6.0 (5.0-7.0) Ur Specific [place] 1.005 (1.001-1.035) Urine Protein Negative (Neg - Trace) Urine Glucose (UA) Negative (Negative) OB Assessment & Plan Assessment and Plan (1) Mother positive for group B Streptococcus colonization: Status: Acute Assessment and plan: Will start ampicillin when in active labor. (2) Supervision of high risk , unspecified, third trimester: Status: Acute Assessment and plan: Induction of labor at this point with Cytotec. (3) -induced hypertension in third trimester: Status: Acute Assessment and plan: PIH labs with one elevated liver function enzyme otherwise normal Additional Plan Induction method: per misoprostol protocol Plan: induction and GBS prophylaxis tx
[2024-11-06] MEDS: Ampicillin Inj 2,000 MG in SODIUM CHLORIDE 0.9% (POP) 100 ML 200 MG IV (17:45)
--- NOTE | 2024-11-06 20:28 | PD.LDPN ---
Documentation for date of: 11/06/24 OB Labor Progress Note Pain Control Pain control: tolerating well and epidural Comments: Patient is starting to feel pressure Pelvic Exam Dilation (cm): 7 Effacement (%): 80 station: -1 Amniotic membrane status: Ruptured Comments: Ruptured membranes at approximately 8:15 PM clear fluid Contractions Monitor mode: External Contraction frequency: 1-3 Contraction intensity: Strong Status status: Category l Assessment and Plan Assessment: active labor Plan OB labor note: continuous present management Comments: Patient is jackelyn every 2 to 2:03 doses of oral Cytotec. No Pitocin augmentation has been begun. She is on ampicillin for positive strep. Anticipate .
[2024-11-06] MEDS: Ampicillin Inj 1,000 MG in SODIUM CHLORIDE 0.9% (Popper) 50 ML 50 MG IV (20:58)
[2024-11-06] MEDS: OXYTOCIN in NS 20 units 20 UNIT/1,000 ML BAG 125 UNIT IV (21:47)
[2024-11-06] MEDS: IBUPROFEN TAB 400 MG TABLET 800 MG PO (23:22)
--- NOTE | 2024-11-06 23:33 | PD.LDDELS ---
Data (Ngo) Data Hx Section: No Maternal Blood Type: A Pos Rubella Titre: Positive RPR: Non-reactive Labs: Positive: Group Beta Strep, Negative: RPR, Hepatitis B, HIV, Chlamydia and Gonorrhea and Unknown: Herpes Type 1 and Herpes Type 2 : 2 Term: 1 : 0 Livin Abortions: Spontaneous & Theraputic: 0 Delivery Data (Ngo) Labor Data Initiation of labor: Induction Induction/Augmentation Agent: Cytotec-PO ROM date: 11/06/24 ROM time: 20:17 Amniotic membrane rupture type: Artificial Amniotic fluid description: Clear Delivery Data EDC: 11/06/24 EDC calculated by:: LMP/early US confirmation Date of arrival to unit: 11/06/24 Time of arrival to unit: 07:30 Onset of labor date: 11/06/24 Onset of labor time: 16:00 Complete dilation date: 11/06/24 Complete dilation time: 21:34 delivery date: 11/06/24 delivery time: 21:44 Gestational age (weeks): 40 Gestational age (days): 0 Placenta delivery date: 11/06/24 Placenta delivery time: 21:48 Stage 1 total time: Labor - Stage 1 Duration 5 hours and 34 minutes Delivered by: Delivery nurse: Cheryl GONZALEZ [place] nurse: Kiki Grant Glove Turner And Former Automatic at delivery: No Support person(s) at delivery: FOB Delivery Method Delivery method: Normal Vaginal Delivery Presentation: Vertex position: OA Anesthesia Type Anesthesia Type: Epidural Delivery Room Medications Delivery room medications: Pitocin 20 u IV Placenta Placenta delivery description: Spontaneous Cord blood sent to lab: Yes cord blood collection: Cord Blood Type Episiotomy Episiotomy description: None Lacerations #1: Perineal: 1st degree Perineal repair Sutures used for repair: 4.0 Chromic EBL Estimated blood loss (ml): 50 Umbilical Cord cord description: 3 Vessels Additional Procedures Patient is a 34-year-old -0-0-1 with all care uncomplicated with Dr. Merry Beasley. She was admitted the morning of 10/07/2024 for a scheduled induction of labor at term secondary to elevated blood pressures in the office. She has been consistently 140s over 80s to 90s the last couple weeks of . No headaches or preeclamptic signs or symptoms. The patient was 1 cm dilated with a very thick posterior cervix very unfavorable on admission. She was admitted. She had Cytotec 50 mcg p.o. x 2 given 4 hours apart. She progressed to 3 cm dilatation with a mid position of her cervix. She had an epidural placed and then an amniotomy performed. She progressed to complete by 2133 and pushed through 2-3 contractions delivering a liveborn male at 2143. Findings, vigorous liveborn male in the WILY presentation with no nuchal cord and no meconium. Apgars were 9 and 9, and weight was 6 pounds 4 ounces. The baby was vigorous and placed directly on mom's chest. The cord was clamped and cut after waiting approximately 1 minute. Cord blood was collected and cord gases were saved. The placenta was complete spontaneous grossly normal delivering within 5 minutes of the baby delivering. Patient delivered with a small first-degree perineal laceration repaired in a standard fashion using 4-0 chromic with a single a [id number] suture. Complications were none. Condition both mom and were in stable condition the delivery room. Complications Complications: None [place] Data (Ngo) Data order: 1 's gender: Male Identification band number: [id number] weight (gms): 2855 g Weight (pounds): 6 lbs and 4.7 ozs [place] length: 47 cm 1 minute: 9 5 minutes: 9
[2024-11-06] MEDS: BENZO/LANO/ALOE (Dermoplast) 60 GM CAN 1 SPRAY TOP (23:40)
[2024-11-07] MEDS: ONDANSETRON INJ 2 MG/ML INJ 2 ML 4 MG IV (00:46)
[2024-11-07 03:53] VITALS: BP 147/90; PULSE 46; RESP 20; TEMP 36.7; O2SAT 99
[2024-11-07] MEDS: ACETAMINOPHEN 325 MG TABLET 650 MG PO ×2 (04:21→17:33)
[2024-11-07 06:40] VITALS: BP 134/76; PULSE 47
[2024-11-07 07:50] VITALS: BP 138/78; PULSE 50; RESP 18
--- NOTE | 2024-11-07 08:02 | ESPR_ITS ---
Subjective Subjective Interval history: Delivery type: Patient doing well this morning. No acute complaints. Ambulating, tolerating p.o. and voiding without difficulty. HTN/Pre-Eclampsia screen: No chest pain, shortness of breath, headache, visual changes, epigastric or right upper quadrant pain. Breast-feeding, lochia diminishing. Bowel: Flatus+/ BM Exam Vital Signs Temp Pulse Resp BP Pulse Ox O2 Del Method 98.1 F 47 L 20 134/76 H 99 Room Air 11/07/24 03:53 11/07/24 06:40 11/07/24 03:53 11/07/24 06:40 11/07/24 03:53 11/07/24 03:53 Constitutional Constitutional: no acute distress Routine HEENT Exam Head: Present normocephalic and atraumatic Eye: Present EOMI and PERRL ENT: Present mucous membranes moist Routine Neck Exam Neck: Present supple and trachea midline Routine Respiratory Exam Respiratory: Present chest non-tender, lungs clear, normal breath sounds and no resp distress Routine Cardiovascular Exam Cardiovascular: Present RRR Routine Abdominal Exam Abdominal: Present soft and normoactive bowel sounds Routine Extremities Exam Extremities: Present full ROM Routine Skin Exam Skin: Present intact, dry and warm Routine Neurological Exam Neurological: Present alert, oriented X3 and CN II-XII intact Routine Psychiatric Exam Psychiatric: Present normal affect and normal thought process Objective Labs 11/06/24 07:55 11/06/24 07:55 Labs: Laboratory Results - last 24 hr 11/06/24 11/06/24 07:55 10:00 WBC 10.6 RBC 4.61 Hgb 13.9 Hct 40.9 MCV 89 MCH 30.2 MCHC 34.0 RDW Std Deviation 44.4 Plt Count 164 Neut % (Auto) 60 Lymph % (Auto) 31 [place] % (Auto) 5 Eos % (Auto) 3 Baso % (Auto) 1 Neut # (Auto) 6.4 Lymph # (Auto) 3.3 [place] # (Auto) 0.5 Eos # (Auto) 0.3 Baso # (Auto) 0.1 Immature Gran # (Auto) 0.03 H Absolute Nucleated RBC 0.00 Immature Gran % 0 Nucleated RBC % 0 PT 9.8 INR 0.9 APTT 26.4 Fibrinogen 441 H Sodium 141 Potassium 4.2 Chloride 109 H Carbon Dioxide 21.0 Anion Gap 11 BUN 11 Creatinine 0.8 Estim Creat Clear Calc 98.2 eGFR > 60 BUN/Creatinine Ratio 14 Glucose 85 Calculated Osmolality 279 Uric Acid 7.6 Calcium 9.0 Corrected Calcium 9.3 Total Bilirubin 0.3 AST 43 H ALT 18 Alkaline Phosphatase 193 H Total Protein 6.3 Albumin 3.6 Globulin 2.7 Albumin/Globulin Ratio 1.3 Ur Collection Type Clean Catch Urine Color Colorless A Urine Clarity Clear Urine pH 6.0 Ur Specific Napoleon 1.005 Urine Protein Negative Urine Glucose (UA) Negative Urine Ketones Negative Urine Blood Negative Urine Nitrite Negative Urine Bilirubin Negative Urine Urobilinogen (Auto) Negative Ur Leukocyte Esterase Positive Urine RBC 1 Urine WBC 2 Ur Squamous Epith Cells 5 Urine Bacteria None Ur Random Creatinine 29 L U Random Total Protein 8 Syphilis Serology Nonreactive Blood Type A Positive Antibody Screen NEGATIVE Blood Bank Wristband ID Yes Assessment & Plan Problem List (1) Mother positive for group B Streptococcus colonization: Status: Acute (2) Supervision of high risk , unspecified, third trimester: Status: Acute (3) -induced hypertension in third trimester: Status: Acute (4) Vaginal delivery: Status: Acute Assessment and plan: 1. Continue routine /post-op care 2. Labs reviewed, cbc appropriate 3. Remove dressing/Hall 4. Encourage to ambulate, shower 5. Encourage PO intake, breast feeding Time Spent With Patient Time: Total time spent is greater than 50% in coordination of care (as documented) at patient's floor/unit and/or counseling patient:
[2024-11-07] MEDS: IBUPROFEN TAB 400 MG TABLET 800 MG PO ×2 (10:55→20:37)
--- NOTE | 2024-11-07 12:27 | PC.CC ---
Khoa Hurst is a 34-year-old female admitted for labor and delivery care. Anesthetic Assistant made contact with Pt at bedside to complete ob assessment and discuss discharge disposition. Role and reason for the contact was explained to Pt. Demographic information was verified. Pt is independent with all ADLs, no source of DME. PCP is DIANA. At time of discharge patient will return home, family will provide transportation. Mother plans on combo feeing, has car seat, and all supplies for baby. Mother denies any use of substance, no DV, no CPS. Mother reports support system provided by extended family. Mother declined MH resources. Discharge Plan: Home PCP: DIANA
[2024-11-07 13:00] VITALS: BP 146/86; PULSE 48; RESP 18; TEMP 36.9
--- NOTE | 2024-11-07 13:30 | PC.NURSE ---
Pt is not wanting blood draw, I informed pt of the reason behind the draw, she still insists on not having one.Spoke with Kamryn and informed him that pt is refusing blood draw. [place] said that is fine if pt is not symptomatic, and I informed him that bleeding has been minimal and vitals are good. I educated the pt on the importance of being aware of any signs of low hemoglobin such as fatigue, low BP, and to keep an eye out for any increased bleeding. Pt and stated understanding. Pt also wanting to be discharged before the 24 hr eladio, Israel was ok with discharge once baby can go (baby set to have final tests around 1999, and be discharged after if all goes well)
[2024-11-07 18:06] VITALS: BP 140/85; PULSE 47; RESP 18; TEMP 36.6
[2024-11-07 20:07] VITALS: BP 132/86; PULSE 49; RESP 18; TEMP 36.6; O2SAT 99
--- NOTE | 2024-11-15 08:42 | ESDS_ITS ---
DS: Providers Provider Date of admission: 11/06/24 07:34 Primary care physician: JORDAN Mehta Admitting Provider: Catherine Beas[facility] ([facility]) Attending Provider on Admission: Marlo Wood MD Consults: 11/06/24 23:31 Referral Routine Comment: Attending Provider on DC: Catherine Beasley MD ([facility]) Discharging Provider: Catherine Beasley MD ([facility]) Anticipated date of discharge: 11/07/24 DS: Diagnosis Discharge Diagnosis (1) care following vaginal delivery: Status: Acute (2) AMA (advanced maternal age) multigravida 35+: Status: Acute Problem List Completed Was Problem List Reviewed/Reconciled?: Yes Summary/Hosp Course Brief History: The patient is a 34-year-old -0-0-1 with all care uncomplicated with Dr. Merry Beasley in the [place] [facility] with some slightly elevated blood pressures last 2-3 visits of 140s over 80s to 90s. She denied headaches or right upper quadrant pain. She denied scotomata. As she was over 39 weeks and multiparous with -induced hypertension, she was offered as scheduled induction of labor. See H and P for further details Hospital Course: The patient was admitted the am of 11/06/24. She underwent a cytotec IOL , eventually had an epidural placed and went on to deliver at 2144 on 11/06/24, See delivery note for further information. On post day one, her vital signs were stable, as were her labs, she was ambulating and tolerating a general diet. Her pain was controlled with ib uprofen. She was discharged home PPD #1 in stable condidtion. Peripartum Data Delivery Method: Normal Vaginal Delivery Episiotomy Description: None Laceration Description: see Delivery Summary complications: none Status at Discharge Cognitive/behavioral status at discharge: Alert and oriented x 3 Functional status at discharge: independent ambulation Overall status at discharge: patient is back to baseline Time Spent with Patient Time attestation: Total time spent providing and/or coordinating discharge services: Time spent: Less than 30 minutes Specific discharge activities: Pelvic rest x 6 weeks Exam Vital Signs Temp Pulse Resp BP Pulse Ox O2 Del Method 97.9 F 49 L 18 132/86 H 99 Room Air 07/27/25 20:07 11/07/24 20:07 11/07/24 20:07 11/07/24 20:07 11/07/24 20:07 11/07/24 20:07 Narrative Exam Fundus firm at umbilicus, no significant edema or erythema Discharge Plan Plan Patient Disposition: HOME (Self Care) Disposition Comment: stable Prescriptions/Referrals Prescriptions/Med Rec: No Action No Known Home Medications Referrals: Monalisa Cardona FNP-C [Primary Care Provider] - Patient/Caregiver Discharge Instructions Discharge Activity: activity as tolerated Other Discharge Activity Instructions:: pelvic rest x 6 weeks Other Discharge Diet Instructions: general diet Education Materials: After a Vaginal , Depression, Breast Care After Print Language: Kazakh Activity Restrictions/Additional Instructions: Call [employer]GAN[employer] 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
== END 2024-11-07 22:05 | disposition home or self-care (01) | DRG 807 ==
LOC: S4SX 08:07 → S4NX 11-07 00:22
PROVIDERS: Admitting Provider Obstetrics & Gynecology; PCP Nurse Practitioner Family; Visit Provider Obstetrics & Gynecology
DX: O99.824 Streptococcus B carrier state complicating childbirth (principal); Z37.0 Single live birth; O13.4 Gestational [pregnancy-induced] hypertension without significant proteinuria, complicating childbirth; Z3A.39 39 weeks gestation of pregnancy; O70.0 First degree perineal laceration during delivery
CPT/HCPCS: 36415; 59409; 80053; 81001; 82570; 84156; 84550; 85025; 85384; 85610; 85730; 86780; 86850; 86900; 86901; 94762; J0290; J2405; J2590; J2795; J7050; J7120; A9270

== ENCOUNTER 2024-12-20 14:37 | Outpatient (AMB) | payer BC, SELFPAY ==
[2024-12-20 14:55] VITALS: BP 127/79; PULSE 76; RESP 16; TEMP 36.8; O2SAT 98
--- NOTE | 2024-12-20 14:55 | OBCLNT_ITS ---
Vital Signs 12/20/24 14:55 Weight 65.884 kg Weight Measurement Method Standing Scale BP 127/79 Blood Pressure Source Automatic Cuff Blood Pressure Location Left Upper Arm Position Sitting Respiration 16 Pulse 76 Pulse Source Monitor Temp 98.2 F Temp Source Oral Pulse Oximetry (%) 98 Oxygen Delivery Method Room Air Allergies/Home Meds Allergies & Medications Allergies No Known Allergies Allergy (Verified 12/20/24 14:56) Medication Reconciliation No Known Home Medications 05/24/24 [History Confirmed 12/20/24] Intake Visit Data Collection New Patient or Established: Established Patient (seen at [facility] within 3 years) Reason for Visit:: visit Seen by Clinical Staff ONLY (RN/MA): No 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 1. Little interest or pleasure in doing things: not at all 2. Feeling down, depressed, or hopeless: not at all Total score: 0 PHQ-9 3. Trouble falling or staying asleep, or sleeping too much: Not at all 4. Feeling tired or having little energy: Not at all 5. Poor appetite or overeating: Not at all 6. Feeling bad about yourself - or that you are a failure or have let yourself or your family down: Not at all 7. Trouble concentrating on things, such as reading the newspaper or watching television: Not at all 8. Moving or speaking so slowly that other people could have noticed? - Or the opposite - being so fidgety or restless that you have been moving around a lot more than usual: not at all 9. Thoughts that you would be better off or of hurting yourself in some way: Not at all Total score: 0 If you checked off any problems, how difficult have these problems made it for you to do your work, take care of things at home, or get along with other people?: not difficult at all Source: Developed by Drs. Brigido Mayfield, Rosenda Patterson, Patricio Mcguire and colleagues, with an educational anastasiya from [employer]. Depression screen completed yes Social History Living Situation History Marital Status: Lives With: Family Housing: House Housing Other:: Patient has a 4-year-old daughter and a 13-year-old stepson at home. 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 Other Relevant History: History of vaginal delivery x 2 without complications. No surgeries. History of Present Illness HPI Narrative The patient is a 34-year-old G2 now P2002 status post vaginal delivery 11/06/2024. The baby is about 6 to 7 weeks old. His name is Trell. He was born weighing 6 pounds 4 ounces. He is up to 10 pounds. Her other daughter is named Aniyah and she is 5 years old. She does have a 13-year-old stepson. Patient is tired but denies any depression. She states she feels a little anxious but she thinks this is due to the fact she is not sleeping well. Her son eats that 9 PM and then 1 AM then 4 AM then he is up at 6 AM. He is exclusively bottle-fed. Dr. Guajardo is her shank taper and states the baby is gaining weight nicely and weighs about 10 pounds already. The patient states her had a vasectomy then a reversal in order for her to get so he will not get another vasectomy. Patient is okay with going on control pills. She likes Loestrin. She thinks she has done having babies. 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 Control Last menstrual period: 12/18/24 Tobacco Smoking Status: Never smoker 2hr glucose: No Return of menses: Yes Is last menstrual period known: Yes Last menstrual period: 12/18/24 : 2 Parity: 2 Resuming intercourse: Yes Name of baby: Trell Gender: male Date of delivery: 11/06/24 Route of delivery: Delivering provider: DR. Merry Beasley Order: birch Delivery outcome: liveborn Interim details: bottle feeding, no mood concerns and no physical complaints Interim complaints: none concerns: feeding problems [place] score: 0 Care OB Visit Log OB Flowsheet Initial Weight: Not Recorded Date -?-?-?-?-?-?-?-?-?-?-?-?- EGA Weight BP Alb Glu CTX Pres Fundal ht FHR Mov Dilation Station Effacement Hx Notes Visit Note 06/29/24 -?-?-?-?-?-?-?-?-?-?-?-?- 20w 6d 63.049 kg 99/61 23 137 active 08/02/24 -?-?-?-?-?-?-?-?-?-?-?-?- 25w 5d 63.673 kg 98/63 29 145 active Had US. No report available. Will get Labs/US report 08/30/24 -?-?-?-?-?-?-?-?-?-?-?-?- 29w 5d 67.302 kg 115/70 33 active Plus FM no UC's no VB need all labs and ultrasound from [facility]. 09/27/24 -?-?-?-?-?-?-?-?-?-?-?-?- 33w 5d 70.817 kg 123/83 37 147 active Positive movement no cont ractions no loss of fluids no vaginal bleeding 10/08/24 -?-?-?-?-?-?-?-?-?-?-?-?- 35w 2d 70.76 kg 130/86 absent unknown 37 145 active Denies CTX, LOF, VB; reports good FM. PENDING ultrasound reports from [facility] to finalize RYAN. call patient thi s afternoon with updated RYAN after reviewing US reports, 1- week f/u with Dr. Mckeon, discuss risk reduction salpingectomy vs tubal ligation options. 10/18/24 -?-?-?-?-?-?-?-?-?-?-?-?- 36w 5d 73.085 kg 143/94 occasional cephalic 37 145 active No CTX/LOF/VB, reports good FM. GBS positive. Reports BH ctx and cramping, no persistent symptoms. RYAN 11/10 confirmed. Prior delivery at 39w Plan: ampicillin during labor, continue weekly visits, cervix checks closer to RYAN, induce if not in labor by 41w, return for CTX, LOF, VB, or ?FM. 10/29/24 -?-?-?-?-?-?-?-?-?-?-?-?- 38w 2d 73.936 kg 135/97 occasional cephalic 36 137 active 1 -3 50 Good movement occasional contractions no loss of fluid or bleeding. Preeclamptic precautions given. Probable induction of labor by due date secondary to borderline elevated blood pressures Patient is aware of positive group B strep status 11/03/24 -?-?-?-?-?-?-?-?-?-?-?-?- 39w 0d 74.899 kg 138/88 occasional cephalic 35 143 active 1 -3 50 +FM. No LOF, Very itchy on abdomen . No rash. Sometimes hands and feet itch RYAN Calculator Estimated Delivery Date Method Current WG Current Estimate 11/10/24 Ultrasound #1 45w 5d Other Estimates 10/19/24 LMP (Uncertain) 48w 6d Expected Delivery Route/Plan Anticipate . Patient will desire epidural. Has a 4-year-old daughter Aniyah. A 12-year-old mariza. Specific Issue/Plans Had all the lab work done at [facility] in [place]. Notes Visit Date: 11/03/24 Last Updated by: Catherine Beasley ([facility])MD +GBBS: Ampicillin in labor Will schedule induction of labor 11/06/2024 EDC 11/11/2024 patient is itchy and has a few mildly elevated blood pressures rule out PIH. Visit Date: 10/29/24 Last Updated by: Catherine Beasley ([facility])MD care labs from [facility]: A+ /antibody negative/ hepatitis B surface antigen negative/ rubella immune /RPR nonreactive /HIV negative/ GC negative /Chlamydia negative/declined NIPT structural survey from 08/02/2024 at [facility] on chart and normal Visit Date: 09/27/24 Last Updated by: Catherine Beasley ([facility])MD No care records from [facility] or labs or imaging available on the computer. Group B strep done today. Cervix is closed baby is vertex on ultrasound. Order ultrasound for size and dates. Visit Date: 08/30/24 Last Updated by: Catherine Beasley ([facility])MD No care labs are reviewed yet. No structural survey available yet. All were done at [facility]. She had her glucose challenge test all done at [facility]. Exam Narrative Physical exam: Declines Pap and pelvic exam stating she had a Pap this . Patient states she started her cycle 2 days ago and declines a pelvic exam. She did a couple of small stitches with a first-degree tear and states she has no concerns about perineal healing. General Limitations: no limitations General Appearance: alert, in no apparent distress, comfortable, cooperative, healthy appearing, well developed and well groomed Neck Neck exam: Present normal inspection, full ROM and trachea midline Chest Chest inspection: Present normal inspection and symmetric chest wall rise Resp Respiratory exam: Present normal lung sounds bilaterally Card Cardiovascular exam: Present regular rate, normal rhythm and normal heart sounds Abdominal Abdominal exam: Present soft and normal bowel sounds Psych Psychiatric exam: Present normal affect and normal mood Skin Skin exam: Present warm, dry, intact and normal color Office Procedures [facility] Clinic LOC & Office Proc's Nursing/Assessment Patient Status: Established Patient [facility] Clinic Nursing Assessment: Medication Reconciliation, Update PMH in EMR and Vital Signs OB Clinic Coordination of Care: Education Complex Pt/Fam, Consent,records obtained, informed consent, Lab and Imaging orders and Staff clarify orders Special Needs: Heart tones Established Patient Charge Established Patient Point Assignment: 110 Established Patient Point Charge: EP Level 3 (80-115) Assessment & Plan Diagnosis / Problem List (1) Routine Follow-Up: Plan: Patient declines Pap and pelvic today. She will start Loestrin for contraception. Condoms for the first month were advised. She can go back to al l normal activities including exercise and intercourse. Patient states she will have her take her one of the nighttime feed so she can get a block of 5 to 6 hours of sleep at a time. She will follow-up yearly or as needed.
== END 2024-12-20 15:36 | disposition home or self-care (01) ==
LOC: HODSOBC 14:37
PROVIDERS: Supervising Provider Obstetrics & Gynecology; Visit Provider Obstetrics & Gynecology
DX: Z39.2 Encounter for routine postpartum follow-up (principal)
CPT/HCPCS: 99213; G0463